=== PATIENT | female | born 2000 | race African-American/Black ===

== ENCOUNTER 2021-03-08 12:18 | Emergency (ER) | payer MEDICAID ==
[~2021-03-08] VITALS: Ht 144.8 cm; Wt 47.6 kg
[2021-03-08 15:47] LABS: BASOPHILS % 0.4 % (0.0-2.0); HEMOGLOBIN. 10.1 g/dL (12.0-16.0); LYMPHOCYTES % 20.6 % (20.0-50.0); MEAN CORPUSCULAR HEMOGLOBIN 22.9 pg (28.0-32.0); MEAN CORPUSCULAR VOLUME 72.5 fL (81.0-99.0); MONOCYTES % 4.7 % (2.0-8.0); NEUTROPHILS % 74.3 % (40.0-76.0); PLATELET 320 x1000/uL (130-400); RED BLOOD CELL COUNT 4.42 mill/uL (4.2-5.4); RED CELL DISTRIBUTION WIDTH 14.8 % (11.6-14.6)
[2021-03-08 15:53] LABS: CHLORIDE 107 mEq/L (98-107)
[2021-03-08 15:57] LABS: ETHANOL BLOOD < 10 mg/dL
[2021-03-08] MEDS ORDERED: POTASSIUM CHLORIDE 20MEQ TABLET SR PO ONE (16:30)
[2021-03-08 17:01] LABS: CLARITY URINE CLOUDY (CLEAR); COLOR URINE DK YELLOW (YELLOW); KETONES URINE 4+ (NEGATIVE); LEUKOCYTE ESTERASE URINE NEGATIVE (NEGATIVE); NITRITE URINE NEGATIVE (NEGATIVE); OCCULT BLOOD URINE NEGATIVE (NEGATIVE); PH URINE 6.5 (4.5-8.0); PROTEIN URINE 1+ (NEGATIVE); SPECIFIC GRAVITY URINE 1.034 (1.005-1.030)
[2021-03-08 17:27] LABS: OPIATES URINE SCREEN NEGATIVE (NEGATIVE); PHENCYCLIDINE URINE SCREEN NEGATIVE (NEGATIVE)
[2021-03-08 17:28] LABS: *AMPHETAMINES SCREEN URINE NEGATIVE (NEGATIVE); *BARBITURATES SCREEN URINE NEGATIVE (NEGATIVE); *BENZODIAZEPINES SCREEN URINE NEGATIVE (NEGATIVE); *COCAINE SCREEN URINE NEGATIVE (NEGATIVE); METHADONE URINE SCREEN NEGATIVE (NEGATIVE)
[2021-03-08 17:46] LABS: CANNABINOID URINE SCREEN PRESUMTIVE POSITIVE (NEGATIVE)
[2021-03-09 12:00] VITALS: BP 120/66
== END 2021-03-09 14:23 | disposition home or self-care (01) ==
LOC: ER 12:18
DX: F41.9 Anxiety disorder, unspecified (principal); Z20.822 Contact with and (suspected) exposure to COVID-19; T74.21XA Adult sexual abuse, confirmed, initial encounter
CPT/HCPCS: 36415; 80053; 80305; 80307; 80320; 80329; 81003; 81025; 85025; 87426; 99285; G0480